=== PATIENT | female | born 1960 | race Caucasian/White ===

== ENCOUNTER → 2016-08-20 | Outpatient (CLI) | payer BC ==
--- NOTE | 2016-08-20 17:30 | ECHOCARDIOGRAM REPORT ---
*NOTICE TO RECEIVING DEMOCRAT AGENCY This information is strictly Confidential and protected under [place] law. [place] law prohibits you from making any further disclosure of this information unless further disclosure is expressly permitted by the written consent of the person to whom it pertains or is authorized by law. A general authorization for the release of medical or other information is not sufficient for this purpose. Hospital accepts no responsibility if the information is made available to any other person, INCLUDING THE PATIENT. Interpretation Summary * Name: LENNOX GENTILE Study Date: 08/20/2016 03:25 PM BP: 181/88 mmHg * Patient Location: [facility] HR: 106 * : 1960 (M/d/yyyy) Gender: Female Height: 69 in * Age: 56 yrs Ethnicity: [place] Weight: 380 lb * Ordering Physician: Greg Sanchez * Referring Physician: Greg Sanchez (JOLON) * Performed By: Edil Eric [facility] * * Reason For Study: A-FIB * BSA: 2.7 m2 * -- Conclusions -- * The rhythm is atrial fibrillation * Left ventricular systolic function is normal. * The right ventricle is mildly dilated. * Compared to an echocardiogram from 01/2011, the LV systolic function is now normal Procedure Details * A complete two-dimensional transthoracic echocardiogram was performed (2D, M-mode, Doppler and color flow Doppler). * A contrast injection of Definity was performed to improve assessment of LV function. * Contrast was injected into an intravenous site in the right arm. * One vial of Definity ultrasound contrast was diluted in normal saline to a total volume of 10 ml. A total of '3' ml of solution was administered during imaging. * Lot # [id number] of Definity utilized for procedure. * Expiration date . * The attending nurse who injected the contrast agent was Edil Vazquez RN. Left Ventricle * The left ventricle is grossly normal size. * Left ventricular systolic function is normal. * Regional wall motion abnormalities cannot be excluded due to limited visualization. Right Ventricle * The right ventricle is mildly dilated. Atria * The left atrial size is normal. * Right atrial size is normal. Mitral Valve * The mitral valve is grossly normal. * There is no mitral regurgitation noted. Tricuspid Valve * The tricuspid valve is not well visualized. * There is trace tricuspid regurgitation. * Right ventricular systolic pressure is normal. Aortic Valve * The aortic valve is not well visualized. * No hemodynamically significant valvular aortic stenosis. * There is no significant aortic regurgitation. Great Vessels * The aortic root is normal size. Pericardium/Pleural * There is no pericardial effusion. Left Ventricular Diastolic Function * Indeterminate MMode 2D Measurements and Calculations Ao root diam 3.5 cm Ao root area 9.5 cm\S\2 ACS 1.9 cm LA dimension 3.9 cm LA/Ao 1.1 LVAd ap4 27.7 cm\S\2 LVLd ap4 7.9 cm EDV(MOD-sp4) 80.0 ml LVAs ap4 15.4 cm\S\2 LVLs ap4 6.7 cm ESV(MOD-sp4) 29.0 ml EF(MOD-sp4) 63.8 % LVAd ap2 27.6 cm\S\2 LVLd ap2 8.4 cm EDV(MOD-sp2) 73.0 ml LVAs ap2 14.2 cm\S\2 LVLs ap2 6.7 cm ESV(MOD-sp2) 24.0 ml EF(MOD-sp2) 67.1 % CO(MOD-sp4) 4.9 l/min CI(MOD-sp4) 1.8 l/min/m\S\2 SV(MOD-sp4) 51.0 ml SI(MOD-sp4) 18.8 ml/m\S\2 CO(MOD-sp2) 4.7 l/min CI(MOD-sp2) 1.7 l/min/m\S\2 SV(MOD-sp2) 49.0 ml SI(MOD-sp2) 18.1 ml/m\S\2 Doppler Measurements and Calculations MV A max marlene 115.5 cm/sec Ao V2 max 101.9 cm/sec Ao max PG 4.2 mmHg Ao max PG (full) 1.0 mmHg LV V1 max PG 3.1 mmHg LV V1 max 88.2 cm/sec PA V2 max 75.5 cm/sec PA max PG 2.3 mmHg TR max marlene 236.7 cm/sec
== END | disposition home or self-care (01) ==
LOC: C.CPL 14:29
PROVIDERS: ATTEND Family Medicine
DX: I48.2 Chronic atrial fibrillation (principal); R06.02 Shortness of breath; I10 Essential (primary) hypertension

== ENCOUNTER → 2017-05-03 | Outpatient (CLI) | payer BC ==
[2017-05-03 17:59] LABS: HEMATOCRIT 43.6 % (37-47); MEAN CELL VOLUME 88.4 fL (80-100); MEAN CORPUSCULAR HEMOGLOBIN 29.8 pg (25-34); MEAN CORPUSCULAR HGB CONC 33.7 g/dl (32-36); MEAN PLATELET VOLUME 13.3 fL (7.4-10.4); PLATELET COUNT 169 K/uL (130-400); RED BLOOD COUNT 4.93 M/uL (4.2-5.4); WHITE BLOOD COUNT 5.42 K/uL (4.8-10.8)
[2017-05-03 18:04] LABS: ALT/SGPT 29 U/L (12-78); BLOOD UREA NITROGEN 13 mg/dl (7-18); CARBON DIOXIDE 25 mmol/L (21-32); CHLORIDE 103 mmol/L (98-107); CREATININE 0.85 mg/dl (0.60-1.20); GLUCOSE 124 mg/dl (70-99); MAGNESIUM 1.9 mg/dl (1.8-2.4); SODIUM 139 mmol/L (136-145)
[2017-05-03 18:14] LABS: AST/SGOT 17 U/L (15-37)
== END | disposition home or self-care (01) ==
LOC: C.LABMFLN 12:50
PROVIDERS: ATTEND Internal Medicine Cardiovascular Disease
DX: I48.91 Unspecified atrial fibrillation (principal)